=== PATIENT | female | born 1950 | race Caucasian/White ===

== ENCOUNTER 2016-12-21 10:02 | Emergency (ER) | payer MEDICARE | END 2016-12-21 11:29 | disposition home or self-care (01) | LOC: D.ER 10:02 | DX: M25.511 Pain in right shoulder (principal); C67.9 Malignant neoplasm of bladder, unspecified; I10 Essential (primary) hypertension; K21.9 Gastro-esophageal reflux disease without esophagitis; F17.200 Nicotine dependence, unspecified, uncomplicated ==

== ENCOUNTER → 2018-03-28 08:55 | Outpatient (CLI) | payer MEDICARE ==
--- NOTE | ~2018-03-28 | EC ---
PATIENT:RATNA TANG DATE OF SERVICE: 03/28/18 SEX: F MEDICAL RECORD: [id number] DATE OF : [birth year] LOCATION:[facility] AGE OF PATIENT: 68 ADMISSION DATE: 03/28/18 REFERRING PHYSICIAN: INTERPRETING PHYSICIAN: RICHMOND ABREU MD ECHOCARDIOGRAM REPORT ECHO CHARGES 4 ECHO COMPLETE Date: 03/28 CLINICAL DIAGNOSIS: MURMUR/CP/PALPITATIONS/HTN ECHOCARDIOGRAPHIC MEASUREMENTS (adult normal given) AC root (d.<3.7cm) 2.8 cm LV Septum d (<1.2 cm> 1.4 cm Valve Excursion 1.6 cm LV Septum (systole) 2.2 cm Left Atria (s.<4.0cm> 4.2 cm LVPW d(<1.2cm) 1.6 cm RV (d.<2.3cm) 2.6 cm LVPW (sytole) 2.0 cm LV diastole(<5.6CM) 4.4 cm MV E-F(>70mm/sec) cm LV systole 2.4 cm LVOT Diameter 1.6 cm MV exc.(>10mm) cm Est.ejection fraction (50-75%) % DOPPLER: LVIT cm/sec A 212 cm/sec E 177 cm/sec LA cm/sec RVSP 58.0 mmHg LVOT 167 cm/sec AOP1/2T m/s Asc. Ao 260 cm/sec RVOT 79.0 cm/sec RA cm/sec PA 121 cm/sec AV Gradient Peak 27.0 mmHg AV Mean 13.0 mmHg AV Area 1.2 cm MV Gradient Peak 20.0 mmHg MV Mean 6.3 mmHg MV Area cm COMMENTS: Director Of Vocational Training: Zeny ROSEOE Scientist Engineer: 4 Dr. Abreu TAPE# PACS Pericardial Effusion N DATE OF SERVICE: PROCEDURE: Transthoracic echocardiogram. FINDINGS: 1. The left ventricle shows evidence of left ventricular hypertrophy, moderate. The inflow characteristics consist of diastolic dysfunction, ejection fraction 65%. 2. The mitral valve has significant mitral annular calcification and thickening. ECHOCARDIOGRAM REPORT [id number] RATNA TANG 3. The aortic valve is sclerotic without stenosis or significant regurgitation. The mitral valve by pressure half time shows a valve area of 1.2 cm-squared with a peak gradient of 20 indicating the possibility of moderate mitral stenosis. 4. The left atrium is moderately dilated. 5. The tricuspid valve has moderate tricuspid regurgitation, RVSP of 50 to 60 mmHg. 6. The right ventricle is mildly dilated with RVH. 7. The right atrium is mildly dilated with normal function. 8. Pulmonic valve is grossly normal. CONCLUSIONS: The patient has evidence of hypertensive heart disease. There is a suggestion of mitral stenosis, which may necessitate further evaluation. TRANSINT:[id number] Voice Confirmation ID: [id number] DOCUMENT ID: [id number] RICHMOND ABREU MD at 1120 CC: [id number] DICTATION DATE: 03/29/18 0953 GLASS CLEANER: 03/29/18 1033 [facility] CLI 03/28/18 [facility] [address] [place] [address]
== END | disposition home or self-care (01) ==
LOC: D.ECHO 03-22 13:00
DX: R01.1 Cardiac murmur, unspecified (principal); R07.9 Chest pain, unspecified; R00.2 Palpitations; I10 Essential (primary) hypertension

== ENCOUNTER 2019-04-16 08:00 | Outpatient (CLI) | payer MEDICARE | END 2019-04-16 16:56 | disposition home or self-care (01) | LOC: D.MAMMO 08:00 | PROVIDERS: ATTEND Family Medicine | DX: Z12.31 Encounter for screening mammogram for malignant neoplasm of breast (principal) ==